=== PATIENT | male | born 1945 | race Caucasian/White ===

== ENCOUNTER → 2017-12-31 | Day surgery (SDC) | payer MEDICARE, BC ==
[2017-12-30 09:18] LABS: BASOPHILS % 0.6 % (0.0-1.0); EOSINOPHILS # (AUTO) 0.1 (0.0-0.4); EOSINOPHILS % 1.5 % (0.0-6.0); HEMOGLOBIN 16.7 g/dL (14.0-18.0); LYMPHOCYTES # (AUTO) 1.6 (1.0-3.2); LYMPHOCYTES % 24.5 % (18.0-39.1); MEAN CORPUSCULAR HEMOGLOBIN 30.4 pg (28-32); MEAN CORPUSCULAR HGB CONC 33.4 g/dL (31-35); MEAN CORPUSCULAR VOLUME 90.9 fL (81-99); MONOCYTES # (AUTO) 0.4 (0.2-0.8); MONOCYTES % 6.4 % (4.4-11.3); NEUTROPHILS # (AUTO) 4.5 (2.1-6.9); NEUTROPHILS % 66.7 % (38.7-80.0); PLATELET COUNT 150 x10e3/uL (140-360); RED CELL DISTRIBUTION WIDTH 12.5 % (11.7-14.4)
[2017-12-30 09:47] LABS: ALANINE AMINOTRANSFERASE 19 IU/L (0-55); ALBUMIN 3.9 g/dL (3.5-5.0); ALBUMIN/GLOBULIN RATIO 1.3 (0.8-2.0); ALKALINE PHOSPHATASE 75 IU/L (40-150); BLOOD UREA NITROGEN 17 mg/dL (7-26); BUN/CREATININE RATIO 20 (6-25); CALCIUM 9.7 mg/dL (8.4-10.2); CARBON DIOXIDE 26 mmol/L (22-29); CHLORIDE 109 mmol/L (98-107); CHOL/HDL RATIO 3.1 (3.9-4.7); CHOLESTEROL 175 MD/DL (0-199); CREATININE, SERUM 0.87 mg/dL (0.72-1.25); EST GLOMERULAR FILTRATION RATE > 60 ML/MIN (60-); GLUCOSE 188 mg/dL (74-118); HDL CHOLESTEROL 56 MG/DL (40-60); LDL CHOLESTEROL 100 MG/DL (60-130); SODIUM 143 mmol/L (136-145); TRIGLYCERIDES 94 MG/DL (0-149)
[~2017-12-31] VITALS: Ht 162.6 cm; Wt 83.9 kg
[~2017-12-31] MED LIST: ALPRAZOLAM 0.5 MG TAB ONE; ALPRAZOLAM 0.5 MG TAB PO ONE; ASPIRIN 325 MG TAB ONE; ASPIRIN 325 MG TAB PO ONE; ASPIRIN81 MG PO; ATENOLOL50 MG PO; BIVALIRUDIN 250 MG/VIAL IV ONE; CRESTOR10 MG PO; DIPHENHYDRAMINE HCL 25 MG CAP ONE; DIPHENHYDRAMINE HCL 25 MG CAP PO ONE; FENTANYL CITRATE/PF 100MCG/2 ML INJ IV ONE; FENTANYL CITRATE/PF 100MCG/2 ML INJ ONE; GLIPIZIDE5 MG PO; HEPARIN SOD (PORCINE) 1000 UNIT/ML 30ML ONE; HEPARIN SOD/SOD CHLORIDE 2,000 ML ONE; IOPAMIDOL 370 MG/ML 200 ML INFUS..BTL INJ ONE; LIDOCAINE HCL 2% LOCAL 20 ML VIAL ONE; METOPROLOL SUCC25 MG PO; MIDAZOLAM HCL 2 MG/2 ML VIAL IV STA; MIDAZOLAM HCL 2 MG/2 ML VIAL ONE; NITROGLYCERIN/D5W 200 MCG/ML 250 ML ONE; PANTOPRAZOLE SO40 MG PO; PRASUGREL 10 MG TAB ONE; PRASUGREL 10 MG TAB PO ONE; PROZAC20 MG PO; SODIUM CHLORIDE 0.9% 1000ML 1,000 ML ONE; SODIUM CHLORIDE 0.9% 50ML 50 ML ONE; SOMA350 MG PO; ULTRAM50 MG PO; VERAPAMIL HCL 2.5 MG/ML 2 ML VIAL ONE
[2017-12-31 07:10] VITALS: BP 129/83
--- NOTE | 2017-12-31 09:37 | Operative Report ---
DATE OF PROCEDURE: December 31, 2017 INDICATIONS: Coronary artery disease and abnormal stress test. PROCEDURES PERFORMED 1. Left heart catheterization. 2. Selective coronary angiography. 3. Left ventriculography. 4. Percutaneous transluminal coronary angioplasty and drug-eluting stent placed in the left anterior descending artery. 5. Percutaneous transluminal coronary angioplasty and drug-eluting stent placed into the circumflex artery. 6. Deployment right wrist TR band. COMPLICATIONS: None. BLOOD LOSS: 5 mL. RECOMMENDATIONS: Dual antiplatelet therapy for at least 1 year. Access was obtained in the right radial artery using ultrasound guidance. A 5-Chinese sheath was placed. Diagnostic coronary angiogram with patent left main. Left anterior descending artery with a mid 80% stenosis at the level of the origin of the 1st diagonal artery. Circumflex with mild disease of 1st obtuse margin branch, 80% stenosis. Right coronary artery had a originating from the ascending aorta. Had minimal disease. However, had excellent flow. LV ejection fraction 65%. LV end-diastolic pressure of 14. No gradient across the aortic on pullback. A decision was made to intervene on the left anterior descending and circumflex arteries. The patient received intravenous Angiomax and oral Effient for anticoagulation. The left main was cannulated using an XP 3.56 guiding catheter. A short run through wire was advanced across the circumflex lesion for support. Primary stent was a 2.25 x 12 mm stent at 20 atmospheres. Excellent results and less than 10% residual stenosis. BERNARD-III flow. No complications. The wire was then directed down the left anterior descending artery. Primary stent was a 2.25 x 8 mm Synergy stent at 25 atmospheres. Excellent end result of less than 10% residual stenosis. BERNARD-III flow. No complications. However, the ostium of the diagonal appeared to have approximately 70% stenosis status post within the stent. BERNARD-III flow. No intervention was deemed necessary. Right wrist TR band applied. The patient was observed in the hospital for 6 hours and discharged home the same day. Job#: [id number] BAYLEE
[2017-12-31 14:17] VITALS: BP 113/72
== END | disposition home or self-care (01) ==
LOC: CATH LAB 07:00
PROVIDERS: ATTEND Internal Medicine Interventional Cardiology
DX: I25.119 Atherosclerotic heart disease of native coronary artery with unspecified angina pectoris (principal); E11.9 Type 2 diabetes mellitus without complications; Z01.812 Encounter for preprocedural laboratory examination; Z68.32 Body mass index [BMI] 32.0-32.9, adult; Z82.49 Family history of ischemic heart disease and other diseases of the circulatory system; Z82.3 Family history of stroke
CPT/HCPCS: 93458; C9600; 36140; 36415; 77002; 80053; 80061; 85025; 93452; C9603; J0583; J1644; J2001; J2250; J7030; Q9967

== ENCOUNTER 2019-10-18 14:42 | Emergency (ER) | payer MEDICARE, BC ==
[~2019-10-18] VITALS: Ht 162.6 cm; Wt 83.9 kg
[~2019-10-18 14:42] MED LIST changes: -ALPRAZOLAM 0.5 MG TAB ONE; -ALPRAZOLAM 0.5 MG TAB PO ONE; -ASPIRIN 325 MG TAB ONE; -ASPIRIN 325 MG TAB PO ONE; -BIVALIRUDIN 250 MG/VIAL IV ONE; -DIPHENHYDRAMINE HCL 25 MG CAP ONE; -DIPHENHYDRAMINE HCL 25 MG CAP PO ONE; -FENTANYL CITRATE/PF 100MCG/2 ML INJ IV ONE; -FENTANYL CITRATE/PF 100MCG/2 ML INJ ONE; -HEPARIN SOD (PORCINE) 1000 UNIT/ML 30ML ONE; -HEPARIN SOD/SOD CHLORIDE 2,000 ML ONE; -IOPAMIDOL 370 MG/ML 200 ML INFUS..BTL INJ ONE; -LIDOCAINE HCL 2% LOCAL 20 ML VIAL ONE; -MIDAZOLAM HCL 2 MG/2 ML VIAL IV STA; -MIDAZOLAM HCL 2 MG/2 ML VIAL ONE; -NITROGLYCERIN/D5W 200 MCG/ML 250 ML ONE; -PRASUGREL 10 MG TAB ONE; -PRASUGREL 10 MG TAB PO ONE; -SODIUM CHLORIDE 0.9% 1000ML 1,000 ML ONE; -SODIUM CHLORIDE 0.9% 50ML 50 ML ONE; -VERAPAMIL HCL 2.5 MG/ML 2 ML VIAL ONE
[2019-10-18] MEDS ORDERED: TETANUS/DIPHTHERIA TOX ADULT 0.5 ML SYR IM ONE (14:45)
[2019-10-18] MEDS ORDERED: CEFAZOLIN SOD 1 GM VIAL IM SCH (15:00)
[2019-10-18 15:51] LABS: BILIRUBIN,URINE NEGATIVE (NEGATIVE); CLARITY,URINE SL CLOUDY (CLEAR); COLOR,URINE YELLOW (YELLOW); KETONES,URINE NEGATIVE (NEGATIVE); LEUKOCYTE ESTERASE ,URINE NEGATIVE (NEGATIVE); NITRITE,URINE NEGATIVE (NEGATIVE); PROTEIN,URINE DIPSTICK NEGATIVE (NEGATIVE); URINE UROBILINOGEN 0.2 mg/dL (0.2 - 1)
--- NOTE | 2019-10-18 15:55 | Diagnostic Imaging Report ---
Exam: Head CT without contrast History: Trauma, fall Comparison studies: Prior head CT of 02/06/2011 is unavailable on the PACS for comparison the time of dictation. Technique: Axial images were obtained from the skull base to the vertex. Coronal and sagittal images reconstructed from the axial data. Dose modulation, iterative reconstruction, and/or weight based adjustment of the mA/kV was utilized to reduce the radiation dose to as low as reasonably achievable. Radiation dose: Total DLP: 1079 mGy*cm. Estimated effective dose: DLP x 0.015 Intravenous contrast: None Findings: Scalp: No abnormalities. Bones: No fractures, blastic or lytic lesions. Brain sulci: Mildly prominent. Ventricles: Incidental dilatation.. No hydrocephalus. Extra-axial spaces: No masses, no fluid collection. Parenchyma: Mass, acute hemorrhage or acute or chronic cortical insults. Probable small incidental left inferior frontal developmental venous anomaly which drains to the left internal cerebral vein. Sellar/suprasellar region: No abnormalities. Craniocervical junction: Patent foramen magnum. No Chiari one malformation. IMPRESSION: 1. No acute abnormalities. 2. Mild generalized parenchyma volume loss. Signed by: Dr. Surinder Mcnair M.D. on 10/18/2019 3:52 PM
--- NOTE | 2019-10-18 16:01 | Diagnostic Imaging Report ---
Exam: Left hand 3 views Clinical History: Pain Findings: There is no evidence of acute fracture or malalignment. The articular joints are well-preserved. The soft tissue is unremarkable. Impression: No radiographic evidence of acute osseous injury. Signed by: Dr. Speedy Handley MD on 10/18/2019 3:57 PM
--- NOTE | 2019-10-18 16:01 | Diagnostic Imaging Report ---
EXAMINATION: HAND 3+ VIEWS RIGHT INDICATION: Trauma COMPARISON: None FINDINGS: Acute nondisplaced oblique fracture through the fourth metacarpal shaft. No other fractures identified. Alignment is anatomic. Extensive soft tissue swelling along the dorsum of the hand. Chondrocalcinosis of the triangular fibrocartilage complex. IMPRESSION: Acute nondisplaced oblique fracture of the fourth metacarpal. Extensive associated soft tissue swelling along the dorsum of the hand. Signed by: Pawan Brown MD on 10/18/2019 3:58 PM
[2019-10-18 16:02] LABS: RBC,URINE 0-5 /HPF (0-5)
--- NOTE | 2019-10-18 16:04 | Diagnostic Imaging Report ---
EXAMINATION: FOREARM RIGHT 2 VIEW, FOREARM LEFT 2 VIEW INDICATION: Trauma COMPARISON: None FINDINGS: AP and lateral images of the right and left forearm demonstrate no acute fracture or dislocation. No substantial elbow joint effusions. Soft tissues appear unremarkable. IMPRESSION: No acute fracture or dislocation of the right or left forearm. Signed by: Pawan Brown MD on 10/18/2019 4:00 PM
--- NOTE | 2019-10-18 16:05 | Diagnostic Imaging Report ---
History: Trauma, fall Comparison studies: None Technique: Axial images were obtained through the cervical region.. Coronal and sagittal images reconstructed from the axial data.. Intravenous contrast: None Findings: Fractures: None. Atlantoaxial articulation: Intact. Alignment: Mild reversal the usual cervical lordotic curvature. No subluxations. Cervicomedullary junction: No abnormalities. The foramen magnum is patent. Soft tissues: No gross acute abnormalities. Vertebrae: No fractures, infection or neoplasm. Degenerative changes: Multilevel anterior bridging osteophytes indent the prevertebral soft tissues. C1-C2: Thickened and partially calcified cruciate ligament. C2-C3: Patent canal and foramina. C3-C4: Moderately degenerated disc with vacuum phenomenon and degenerative endplate changes. Disc osteophyte complex, uncovertebral arthrosis and moderate right and mild left facet arthrosis with moderate bilateral foraminal stenosis. C4-C5: Mildly degenerated disc. Canal and foramina. C5-C6: Moderately degenerated disc which is partially calcified. Disc osteophyte complex and uncovertebral arthrosis with moderate left and mild right foraminal stenosis. No significant canal stenosis. C6-C7: Moderately degenerated disc which is also partially calcified. Disc ossify complex and uncovertebral arthrosis result in mild bilateral foraminal stenosis. C7-T1: Moderately degenerated disc which is also partially calcified. Disc osteophyte complex and uncovertebral arthrosis with moderate left and mild right foraminal stenosis. No significant canal stenosis. 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 IMPRESSION: 1. No cervical spine fracture or subluxation. 2. Multilevel degenerative changes as described with moderate multilevel disc degeneration and multilevel foraminal stenosis without significant canal stenosis. Ligament, spinal cord and or vascular abnormalities cannot be excluded on the basis of this examination Signed by: Dr. Surinder Mcnair M.D. on 10/18/2019 4:02 PM
[2019-10-18] MEDS ORDERED: LIDOCAINE HCL 1% LOCAL INJ 20 ML VIAL INJ ONE (16:15)
[2019-10-18] MEDS ORDERED: CEFAZOLIN SOD 1 GM VIAL IM ONE (16:15)
[2019-10-18 16:36] VITALS: BP 140/75
== END 2019-10-18 17:20 | disposition home or self-care (01) ==
LOC: ER 14:42
DX: S00.83XA Contusion of other part of head, initial encounter (principal); S61.411A Laceration without foreign body of right hand, initial encounter; S50.11XA Contusion of right forearm, initial encounter; S60.221A Contusion of right hand, initial encounter; S50.12XA Contusion of left forearm, initial encounter; S60.222A Contusion of left hand, initial encounter; W11.XXXA Fall on and from ladder, initial encounter; Y92.008 Other place in unspecified non-institutional (private) residence as the place of occurrence of the external cause; I10 Essential (primary) hypertension; E11.9 Type 2 diabetes mellitus without complications; I25.10 Atherosclerotic heart disease of native coronary artery without angina pectoris; E78.5 Hyperlipidemia, unspecified; Z85.46 Personal history of malignant neoplasm of prostate
CPT/HCPCS: 12002; 70450; 72125; 73090 ×2; 73130 ×2; 81001; 90471; 90714; 99284; J0690; J2001

== ENCOUNTER → 2021-06-10 | Outpatient (CLI) | payer MEDICARE, BC | LOC: CT 07:38 | PROVIDERS: ATTEND Family Medicine | DX: R91.1 Solitary pulmonary nodule (principal); J92.0 Pleural plaque with presence of asbestos | CPT/HCPCS: 71250 ==

== ENCOUNTER → 2021-10-29 | Outpatient (CLI) | payer MEDICARE, BC | LOC: CT 07:27 | PROVIDERS: ATTEND Family Medicine | DX: S39.012A Strain of muscle, fascia and tendon of lower back, initial encounter (principal); E11.65 Type 2 diabetes mellitus with hyperglycemia | CPT/HCPCS: 72131 ==